=== PATIENT | male | born 1960 | race Caucasian/White ===

== ENCOUNTER 2021-04-28 22:18 | Emergency (ER) | payer MEDICARE | END 2021-04-28 23:40 | disposition home or self-care (01) | LOC: ER1 22:18 | DX: S31.829A Unspecified open wound of left buttock, initial encounter (principal); X58.XXXA Exposure to other specified factors, initial encounter | CPT/HCPCS: 99283 ==

== ENCOUNTER 2021-09-17 14:38 | Observation (INO) | payer MEDICARE, OTHER, MEDICAID ==
[~2021-09-17] VITALS: Ht 185.4 cm; Wt 111.1 kg
[2021-09-17 15:09] LABS: HEMOGLOBIN 14.7 gm/dl (14.0-17.5); RED BLOOD COUNT 4.57 M/UL (4.20-5.50); WHITE BLOOD COUNT 7.2 K/UL (4.5-11.0)
[2021-09-17 15:47] LABS: BUN/CREATININE RATIO 8 (0-10)
[2021-09-17] MEDS ORDERED: COZAAR 25MG TAB25 MG PO (17:56)
[2021-09-17] MEDS ORDERED: PLAVIX 75 MG TA75 MG PO (17:56)
[2021-09-17] MEDS ORDERED: LIPITOR80 MG PO (17:56)
[2021-09-17] MEDS ORDERED: NITROSTAT0.4 MG SL (17:57)
[2021-09-17] MEDS ORDERED: VIMPAT150 MG PO (17:57)
[2021-09-17] MEDS ORDERED: LOPRESSOR 25 MG25 MG PO (17:57)
[2021-09-18 03:12] LABS: RED BLOOD COUNT 4.42 M/UL (4.20-5.50)
[2021-09-18 04:20] LABS: BUN/CREATININE RATIO 7 (0-10)
--- NOTE | 2021-09-18 05:00 | NUR ---
PATIENT STATES HE HAS TO USE STRAIGHT CATH PRN FOR URINE RETENSION. CONTACTED MD AND OBTAINED ORDERS FOR STRAIGHT CATH PRN FOR PATIENT COMFORT.DRAINED 325 ML PATIENT TOLERATED WELL
--- NOTE | 2021-09-18 06:25 | NUR ---
SCDS APPLED TO PATIENT [id number]
[2021-09-19] MEDS ORDERED: RANEXA500 MG PO (13:26)
== END 2021-09-19 14:30 | disposition home or self-care (01) ==
LOC: ER1 14:38 → M/S 16:36 → CDU 16:36 → M/S 22:05
PROVIDERS: Emergency Medicine; Physician Assistant Medical; ADMIT Internal Medicine
DX: R07.9 Chest pain, unspecified (principal); Z20.822 Contact with and (suspected) exposure to COVID-19; I25.118 Atherosclerotic heart disease of native coronary artery with other forms of angina pectoris; I10 Essential (primary) hypertension; E78.5 Hyperlipidemia, unspecified; E11.9 Type 2 diabetes mellitus without complications; G47.33 Obstructive sleep apnea (adult) (pediatric); N41.9 Inflammatory disease of prostate, unspecified; G89.29 Other chronic pain; M54.9 Dorsalgia, unspecified; I25.2 Old myocardial infarction; E66.9 Obesity, unspecified; Z68.32 Body mass index [BMI] 32.0-32.9, adult; Z79.02 Long term (current) use of antithrombotics/antiplatelets; Z79.899 Other long term (current) drug therapy; Z87.891 Personal history of nicotine dependence; Z95.5 Presence of coronary angioplasty implant and graft; Z91.041 Radiographic dye allergy status
CPT/HCPCS: ECHO; 36415; 71045; 78452; 80053; 80061; 82550; 82553; 83036; 83690; 83735; 83874; 83880; 84100; 84484; 85025; 85027; 85610; 85730; 93005; 93017; 93306; 99285; A9502; G0378; J1650; J2785; U0002

== ENCOUNTER 2022-02-09 10:47 | Emergency (ER) | payer MEDICARE ==
[~2022-02-09 10:47] MED LIST: COZAAR 25MG TAB25 MG PO; LIPITOR80 MG PO; LOPRESSOR 25 MG25 MG PO; NITROSTAT0.4 MG SL; PLAVIX 75 MG TA75 MG PO; RANEXA500 MG PO; VIMPAT150 MG PO
[2022-02-09 12:03] LABS: HEMOGLOBIN 14.2 gm/dl (14.0-17.5); RED BLOOD COUNT 4.49 M/UL (4.20-5.50); WHITE BLOOD COUNT 7.4 K/UL (4.5-11.0)
[2022-02-09 12:25] LABS: BUN/CREATININE RATIO 15 (0-10)
[2022-02-09] MEDS ORDERED: MEDROL DOSEPAK 24 MG PO (16:07)
== END 2022-02-09 16:20 | disposition home or self-care (01) ==
LOC: ER1 10:47
PROVIDERS: Physician Assistant
DX: R07.89 Other chest pain (principal); I25.2 Old myocardial infarction; E11.9 Type 2 diabetes mellitus without complications; E78.5 Hyperlipidemia, unspecified; I10 Essential (primary) hypertension; Z95.5 Presence of coronary angioplasty implant and graft; Z87.891 Personal history of nicotine dependence; Z88.8 Allergy status to other drugs, medicaments and biological substances; Z20.822 Contact with and (suspected) exposure to COVID-19
CPT/HCPCS: 0240U; 71045; 80053; 81001; 82550; 82553; 83605; 84484; 85025; 93005; 99285

== ENCOUNTER 2022-03-09 10:54 | Emergency (ER) | payer MEDICARE ==
[~2022-03-09] VITALS: Ht 182.9 cm; Wt 104.3 kg
[~2022-03-09 10:54] MED LIST changes: +MEDROL DOSEPAK 24 MG PO
[2022-03-09 12:04] LABS: HEMOGLOBIN 14.9 gm/dl (14.0-17.5); RED BLOOD COUNT 4.68 M/UL (4.20-5.50)
[2022-03-09 12:20] LABS: BUN/CREATININE RATIO 15 (0-10)
== END 2022-03-09 16:12 | disposition home or self-care (01) ==
LOC: ER1 10:54
PROVIDERS: Physician Assistant
DX: U07.1 COVID-19 (principal); J40 Bronchitis, not specified as acute or chronic; J02.9 Acute pharyngitis, unspecified; E11.9 Type 2 diabetes mellitus without complications; I25.2 Old myocardial infarction; I10 Essential (primary) hypertension; Z90.49 Acquired absence of other specified parts of digestive tract; Z88.8 Allergy status to other drugs, medicaments and biological substances; Z91.041 Radiographic dye allergy status
CPT/HCPCS: 71045; 80053; 85025; 87081; 87880; 99284; M0222